=== PATIENT | male | born 1990 | race Two or more races ===

== ENCOUNTER 2018-11-26 00:33 | Emergency (ER) | payer SELFPAY ==
[~2018-11-26] VITALS: Ht 180.3 cm; Wt 108.9 kg
[2018-11-26] MEDS ORDERED: IOHEXOL 350 MG/ML 100ML IJ ONE (01:23)
[2018-11-26] MEDS ORDERED: ONDANSETRON HCL 4 MG/2 ML VIAL IV ONE (01:30)
[2018-11-26] MEDS ORDERED: MORPHINE SULFATE 4 MG/ML SYR/VIAL IV ONE ×2 (01:30→03:30)
[2018-11-26 02:09] LABS: Urine WBC None Seen /hpf (0 - 3)
[2018-11-26 02:25] LABS: Urine Bacteria NONE SEEN /hpf (None Seen); Urine Blood Negative /uL (Negative); Urine Specific Gravity 1.036 (1.001-1.035)
[2018-11-26 02:50] LABS: Basophils # (auto) 0 uL; Basophils % (auto) 0.3 % (0.0-2.0); Eosinophils # (auto) 0 uL; Eosinophils % (auto) 0.5 % (0.0-7.0); Hematocrit 41.1 % (41.0-53.0); Hemoglobin 14.2 g/dL (13.5-17.5); Lymphocytes # (auto) 1.6 uL; Lymphocytes % (auto) 14.3 % (10.0-50.0); Mean Corpuscular Hemoglobin 30.5 pg (28.0-32.0); Mean Corpuscular Hgb Conc. 34.6 g/dL (32.0-36.0); Mean Corpuscular Volume 88.3 fL (80.0-100.0); Monocytes # (auto) 0.4 uL; Monocytes % (auto) 4.1 % (0.0-12.0); Neutrophils # (auto) 8.8 uL; Neutrophils % (auto) 80.8 % (37.0-80.0); Nucleated Red Blood Cells % 0.1 %; Platelet Count (auto) 264 10^3/uL (140-450); Red Blood Cells 4.65 10^6/uL (4.5-5.90); Red Cell Distribution Width 12.9 % (11.8-14.3); White Blood Cell 10.9 10^3/uL (4.4-10.8)
[2018-11-26 03:01] LABS: INR 1.02 (0.9-1.15); Partial Thromboplastin Time 24.9 sec (23.64-32.05)
[2018-11-26 03:20] VITALS: BP 134/80
[2018-11-26] MEDS ORDERED: SODIUM CHLORIDE 0.9% 1,000 ML IV ONE (03:30)
[2018-11-26 04:06] LABS: Albumin 4.1 g/dL (3.4-5.0); BUN/Creatinine Ratio 20.8; Calcium 8.9 mg/dL (8.5-10.1); Potassium 4.2 mmol/L (3.5-5.1)
[2018-11-26 04:08] LABS: Bilirubin, Total 0.3 mg/dL (0.2-1.0); Total Protein 7.3 g/dL (6.4-8.2)
== END 2018-11-26 03:36 | disposition short-term general hospital (02) ==
LOC: EDBD 00:33 → ER 00:37
DX: S31.819A Unspecified open wound of right buttock, initial encounter (principal); S49.91XA Unspecified injury of right shoulder and upper arm, initial encounter; Y08.89XA Assault by other specified means, initial encounter; Y93.89 Activity, other specified; Y99.8 Other external cause status; Y92.89 Other specified places as the place of occurrence of the external cause
CPT/HCPCS: 36415; 73706; 80053; 81001; 85025; 85610; 85730; 86850; 86900; 86901; 96374; 96375; 99291; J2270; J2405; Q9967

== ENCOUNTER 2019-05-30 21:21 | Emergency (ER) | payer BC, OTHER ==
[~2019-05-30] VITALS: Ht 167.6 cm; Wt 81.6 kg
[2019-05-30 22:00] VITALS: BP 134/86
== END 2019-05-31 02:28 | disposition home or self-care (01) ==
LOC: ER 21:25
DX: M65.241 Calcific tendinitis, right hand (principal)
CPT/HCPCS: 29125